=== PATIENT | female | born 1985 | race Two or more races ===

== ENCOUNTER 2017-10-25 07:31 | Emergency (ER) | payer MEDICAID ==
[~2017-10-25] VITALS: Ht 165.1 cm; Wt 157.4 kg
[2017-10-25 07:37] VITALS: Ht 165.1 cm; Wt 157.4 kg
[2017-10-25 08:24] LABS: BASOPHIL % 0.5 % (0-2); PLATELET COUNT 342 x10^3mcL (130-400)
[2017-10-25 08:33] LABS: CALCIUM 8.2 mg/dL (8.5-10.1); CARBON DIOXIDE 23.4 mmol/L (21-32); CHLORIDE SERUM 103 mmol/L (98-107); CREATININE SERUM 0.7 mg/dL (0.6-1.0); GFR1 > 60 mL/min; GLUCOSE SERUM 108 mg/dL (74-106); POTASSIUM SERUM 3.9 mmol/L (3.5-5.1); SODIUM SERUM 136 mmol/L (136-145)
[2017-10-25 08:37] LABS: RED CELL DISTRIBUTION WIDTH 17.6 % (11.5-14.5)
[2017-10-25 08:38] LABS: ALKALINE PHOSPHATASE 92 U/L (46-116); ALT/SGPT 93 U/L (14-59); AST/SGOT 66 U/L (15-37); BILIRUBIN TOTAL 0.35 mg/dL (0.20-1.00); LIPASE 165 IU/L (73-393); TOTAL PROTEIN, SERUM 8.2 g/dL (6.4-8.2)
[2017-10-25 08:45] LABS: UA SPECIFIC GRAVITY 1.015 (1.005-1.035); microscopic required? YES; urine erythrocyte NEGATIVE (NEGATIVE)
[2017-10-25 13:08] VITALS: BP 137/85
== END 2017-10-25 13:10 | disposition home or self-care (01) ==
LOC: ED 07:31
PROVIDERS: Emergency Medicine
DX: N39.0 Urinary tract infection, site not specified (principal)
CPT/HCPCS: 36415; 87491; 87591; J1885